=== PATIENT | female | born 1960 | race Caucasian/White ===

== ENCOUNTER → 2017-03-18 | Outpatient (CLI) | payer BC ==
[~2017-03-18] MED LIST: CLR5 PO; FLUO20CA35 PO; SNG10 PO; [UNRECOGNIZED DRUG - CODE] PO
[2017-03-18 12:58] LABS: BASO % 0.8 %; BASO ABS # 0.06 K/uL (0-0.2); COMPLETE YES; EOS % 1.5 %; HEMATOCRIT 43.9 % (37-47); IG% 0.1 %; LYMPH % 42.2 %; MEAN CELL VOLUME 92.4 fL (80-100); MEAN CORPUSCULAR HEMOGLOBIN 31.4 pg (25-34); MEAN CORPUSCULAR HGB CONC 33.9 g/dl (32-36); MEAN PLATELET VOLUME 9.5 fL (7.4-10.4); MONO % 5.9 %; NEUT % 49.5 %; PLATELET COUNT 250 K/uL (130-400); RED BLOOD COUNT 4.75 M/uL (4.2-5.4); WHITE BLOOD COUNT 7.58 K/uL (4.8-10.8)
[2017-03-18 13:41] LABS: ALT/SGPT 25 U/L (12-78); AST/SGOT 13 U/L (15-37); BLOOD UREA NITROGEN 13 mg/dl (7-18); BUN/CREATININE RATIO 15.7 (10-20); CALCIUM 9.3 mg/dl (8.5-10.1); CARBON DIOXIDE 30 mmol/L (21-32); CHLORIDE 104 mmol/L (98-107); CHOLESTEROL 262 mg/dl (0-200); CREATININE 0.81 mg/dl (0.60-1.20); GLUCOSE 91 mg/dl (70-99); POTASSIUM 3.9 mmol/L (3.5-5.1); SODIUM 139 mmol/L (136-145); TRIGLYCERIDES 215 mg/dl (0-150); VERY LOW DENSITY LIPOPROT CALC 43 mg/dl
[2017-03-18 13:52] LABS: CHOLESTEROL/HDL RATIO 4.4; HDL CHOLESTEROL 60 mg/dl; LDL CHOLESTEROL CALCULATED 159 mg/dl
[2017-03-18 15:00] LABS: LYME DISEASE AB IGG NEG (NEG)
[2017-03-18 15:04] LABS: LYME DISEASE AB IGM NEG (NEG)
== END | disposition home or self-care (01) ==
LOC: C.LABMFLN 10:38
PROVIDERS: ATTEND Family Medicine
DX: I10 Essential (primary) hypertension (principal); R63.5 Abnormal weight gain; E78.5 Hyperlipidemia, unspecified; R53.83 Other fatigue; S30.861A Insect bite (nonvenomous) of abdominal wall, initial encounter; W57.XXXA Bitten or stung by nonvenomous insect and other nonvenomous arthropods, initial encounter

== ENCOUNTER → 2018-04-11 | Outpatient (CLI) | payer BC ==
[2018-04-11 18:34] LABS: BLOOD UREA NITROGEN 10 mg/dl (7-18); CARBON DIOXIDE 29 mmol/L (21-32); CHOLESTEROL 215 mg/dl (0-200); CREATININE 0.83 mg/dl (0.60-1.20); GLUCOSE 84 mg/dl (70-99); LDL CHOLESTEROL CALCULATED 116 mg/dl; POTASSIUM 3.4 mmol/L (3.5-5.1); SODIUM 136 mmol/L (136-145)
== END | disposition home or self-care (01) ==
LOC: C.LABMFLN 11:05
PROVIDERS: ATTEND Family Medicine
DX: I10 Essential (primary) hypertension (principal); E78.5 Hyperlipidemia, unspecified; K57.92 Diverticulitis of intestine, part unspecified, without perforation or abscess without bleeding